=== PATIENT | female | born 1990 | race Caucasian/White ===

== ENCOUNTER 2022-10-10 11:42 | Outpatient (CLI) | payer BC, SELFPAY ==
--- NOTE | 2022-10-10 12:15 | CRLHL7_ITS ---
For Patients: As a result of the Century Cures Act, medical imaging exams and procedure reports are released immediately into your electronic medical record. You may view this report before your referring provider. If you have questions, please contact your health care provider. INDICATION: Evaluate anatomy. COMPARISON: August 12, 2022. TECHNIQUE: Real time martinez scale imaging of the fetus was performed. FINDINGS: Sonographic imaging demonstrates a single living intrauterine gestation. Fetus demonstrates a regular cardiac rate of 142 beats per minute. Fetus has a transversely oriented. The placenta lies posteriorly located without evidence of placenta previa. Amniotic fluid volume appears normal. Single deepest vertical pocket: 4.7 cm. The cervix is closed and measures 3.6 cm in length. The composite ultrasound gestational age is calculated at 19 weeks 0 days with an estimated sonographic due date of March 06, 2023. The estimated weight is 249 grams which lies at the 39th percentile. The following biometric measurements were obtained: Biparietal diameter: 4.3 cm/19 weeks 0 days 65% Head circumference: 16.2 cm/19 weeks 0 days 55% Abdominal circumference: 13.0 cm/18 weeks 4 days 40% Femur length: 2.8 cm/18 weeks 4 days 38% The HC/AC ratio measures: 1.24 range (1.09-1.26) On anatomic survey, the facial profile, head, nose/lips, 4 chamber heart view, and outflow tracts, are not well seen due to position. A follow-up ultrasound is recommended within 1-2 weeks to assess for these structures as they are not at all well seen today. The cervical, thoracic and lumbar spine are visualized and appear grossly normal. The diaphragm, stomach, kidneys and bladder appear normal. There is a normal three-vessel cord and cord insertion site. The four extremities appear normal. IMPRESSION: Single living intrauterine in transverse presentation. Suboptimal visualization of multiple structures due to presentation. A follow-up ultrasound is recommended within 1-2 weeks to complete the anatomic survey. Dictated by Phill Rodriguez MD @ 10/11/2022 10:21:39 AM (Electronically Signed)
== END 2022-10-10 11:43 | disposition home or self-care (01) ==
LOC: US 11:43
PROVIDERS: Visit Provider Advanced Practice Midwife
DX: Z34.92 Encounter for supervision of normal pregnancy, unspecified, second trimester (principal); Z3A.19 19 weeks gestation of pregnancy
CPT/HCPCS: 76805

== ENCOUNTER 2022-10-31 08:24 | Outpatient (CLI) | payer BC, SELFPAY ==
--- NOTE | 2022-10-31 08:45 | CRLHL7_ITS ---
For Patients: As a result of the Century Cures Act, medical imaging exams and procedure reports are released immediately into your electronic medical record. You may view this report before your referring provider. If you have questions, please contact your health care provider. INDICATION: Follow-up missed anatomy COMPARISON: 10/10/2022 TECHNIQUE: Real time martinez scale imaging of the fetus was performed. FINDINGS: Sonographic imaging demonstrates a single living intrauterine gestation. Fetus demonstrates a regular cardiac rate of 146 beats per minute. Fetus has a transverse position, head maternal left. The placenta lies posteriorly. Amniotic fluid volume appears normal. The nose, lips, and facial profile appear normal. There is a normal four-chamber heart view and the left and right ventricular outflow tracts appear normal. IMPRESSION: Normal profile, head, nose, lips and heart views. Dictated by Daniel Odom MD @ 10/31/2022 9:50:45 AM (Electronically Signed)
== END 2022-10-31 08:25 | disposition home or self-care (01) ==
LOC: US 08:24
PROVIDERS: Visit Provider Advanced Practice Midwife
DX: O35.AXX0 Maternal care for other (suspected) fetal abnormality and damage, fetal facial anomalies, not applicable or unspecified (principal)
CPT/HCPCS: 76816

== ENCOUNTER 2022-11-19 10:59 | Emergency (ER) | payer BC, SELFPAY ==
[2022-11-19 11:06] VITALS: BP 116/74; PULSE 75; RESP 20; TEMP 36.4; BMI 28.8
--- NOTE | 2022-11-19 11:52 | CRLHL7_ITS ---
For Patients: As a result of the Century Cures Act, medical imaging exams and procedure reports are released immediately into your electronic medical record. You may view this report before your referring provider. If you have questions, please contact your health care provider. INDICATION: Right lower quadrant pain. Twenty-four weeks . TECHNIQUE: Ultrasound OB pelvis transabdominal, limited. Real-time martinez-scale imaging of the fetus was performed. COMPARISON: October 31, 2022 FINDINGS: Sonographic imaging demonstrates a single living intrauterine gestation. Fetus demonstrates a regular cardiac rate of 134 beats per minute. Fetus has a breech orientation. The placenta lies posteriorly near the fundus without evidence of placenta previa. Amniotic fluid volume appears normal. IMPRESSION: Single viable intrauterine . No acute abnormalities identified. Dictated by Jessica Villalta MD @ 11/19/2022 1:22:40 PM (Electronically Signed)
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
[2022-11-19 11:55] LABS: Appearance Urine Clear (Clear); Bilirubin Urine Negative (Negative); Blood Urine Negative (Negative); Color Urine Yellow (Yellow); Glucose Urine Negative (Negative); Ketones Urine Negative (Negative); Leukocyte Esterase Urine Trace (Negative); Nitrite Urine Negative (Negative); Protein Urine Negative (Negative); Specific Gravity Urine 1.015 (1.000-1.030); Urobilinogen Urine 0.2 (0.2-1.0)
[2022-11-19 12:09] LABS: Basophils Absolute Auto 0.01 K/uL (0.00-0.30); Basophils Percent Auto 0.1 % (0.0-3.0); Eosinophils Absolute Auto 0.06 K/uL (0.00-0.50); Eosinophils Percent Auto 0.7 % (0.0-7.0); Hematocrit 34.2 % (33.0-51.0); Hemoglobin* 11.3 gm/dL (12.0-16.0); Immature Granulocytes Abs Auto 0.04 K/uL (0.00-0.30); Immature Granulocytes Pct Auto 0.5 %; Lymphocytes Absolute Auto 2.16 K/uL (0.90-2.90); Lymphocytes Percent Auto 24.5 % (20-44); Mean Corpuscular HGB Conc 33 gm/dL (32-36); Mean Corpuscular Hemoglobin 31 pg (26-34); Mean Corpuscular Volume 92 fL (80-100); Monocytes Percent Auto 6.7 % (0.0-11.0); Neutrophils Absolute Auto 5.95 K/uL (1.7-7.0); Neutrophils Percent Auto 67.5 % (42.0-72.0); Platelet Count* 263 K/uL (140-440); RDW Coefficient of Variation % 12.4 % (11.5-15.5); White Blood Count* 8.81 K/uL (4.50-11.00)
[2022-11-19 12:10] LABS: Slide Review Reflex No
[2022-11-19 12:11] LABS: Bacteria Urine Few; RBC Urine 0-2 (0-2); Squamous Epithelial Cell Urine Few (None-Few)
[2022-11-19 12:27] LABS: Albumin* 3.9 g/dL (3.3-5.0); Chloride* 106 mmol/L (96-114); Potassium* 3.9 mmol/L (3.6-5.1); Sodium* 137 mmol/L (135-149)
[2022-11-19 12:29] LABS: Creatinine* 0.5 mg/dL (0.5-1.5); Estimated Glomerular Filt Rate 126 ml/min
[2022-11-19 12:30] LABS: Alanine Aminotransferase* 15 U/L (4-35); Alkaline Phosphatase* 48 U/L (40-150); Anion Gap 7 mEq/L (7-15); Aspartate Amino Transferase* 20 U/L (12-35); Bilirubin Total* 0.3 mg/dL (0.1-1.5); Blood Urea Nitrogen* 8 mg/dL (5-24); Calcium* 9.1 mg/dL (8.4-10.6); Carbon Dioxide* 24 mmol/L (20-32); Glucose* 86 mg/dL (60-115)
[2022-11-19] MEDS: ACETAMINOPHEN 500 MG TABLET 1000 MG PO (12:58)
[2022-11-19 13:00] VITALS: BP 105/67; PULSE 73; RESP 16; O2SAT 100
== END 2022-11-19 13:50 | disposition home or self-care (01) ==
PROVIDERS: Emergency Provider Student in an Organized Health Care Education/Training Program; PCP Advanced Practice Midwife
DX: R10.11 Right upper quadrant pain (principal)
CPT/HCPCS: 36415; 76815; 80053; 81001; 85025; 87086; 99283; 99284; A9270

== ENCOUNTER 2022-12-18 11:13 | Outpatient (CLI) | payer BC, SELFPAY | END 2022-12-18 11:14 | disposition home or self-care (01) | LOC: NFLDREF 12-21 14:13 | PROVIDERS: Visit Provider Advanced Practice Midwife | DX: Z34.83 Encounter for supervision of other normal pregnancy, third trimester (principal); Z3A.28 28 weeks gestation of pregnancy | CPT/HCPCS: 86592 ==